=== PATIENT | male | born 1960 | race Caucasian/White ===

== ENCOUNTER 2018-01-13 07:09 | Emergency (ER) | payer BC ==
[2018-01-13 07:33] VITALS: BP 125/80
--- NOTE | 2018-01-13 07:36 | UC ---
Throat Pain/Nasal Juan HPI - HPI Summary HPI Summary: 57 year old male with sinus complaint. Has history of UC and sinus surgery with Dr Robbin CHAVEZ in [place]. Has sinus pressure for 5 days and eels it will snow ball in to infection. No fever. no tooth pain. Yellow mucus in AM and clears up - History of Current Complaint Stated Complaint: SINUS COMP Time Seen by Provider: 01/13/18 07:31 Hx Obtained From: Patient Onset/Duration: Gradual Onset Severity: Moderate Pain Intensity: 8 Cough: Productive Associated Signs & Symptoms: Positive: Sinus Discomfort, Nasal Discharge - Allergies/Home Medications Allergies/Adverse Reactions: Allergies Allergy/AdvReac Type Severity Reaction Status Date / Time MS Amoxicillin [Amoxicillin] Allergy Severe Hives Verified 01/13/18 07:17 MS Cephalexin [Cephalexin] Allergy Severe Hives Verified 01/13/18 07:17 MS Penicillins [Penicillins] Allergy Severe Hives Verified 01/13/18 07:17 MS Sulfa Drugs [Sulfa Drugs] Allergy Severe Hives Verified 01/13/18 07:17 MS Acetaminophen AdvReac Vomiting Verified 01/13/18 07:17 [From Oxycodone W/Acetaminophen] MS Oxycodone AdvReac Vomiting Verified 01/13/18 07:17 [From Oxycodone W/Acetaminophen] Home Medications: Home Medications Azelastine 0.15% NASAL(NF) [Astepro 0.15% NASAL (NF)] 2 spray BOTH NARES DAILY 01/13/18 [History Confirmed 01/13/18] Mesalamine CAP(NF) [Pentasa(NF)] 2 cap PO QID 01/13/18 [History Confirmed ] PMH/Surg Hx/FS Hx/Imm Hx Previously Healthy: Yes GI/ History: Other - colitis Other GI/ History: uc - Surgical History Surgical History: Yes Surgery Procedure, Year, and Place: kidney stone. polyps removed from sinus - Family History Known Family History: Positive: None - Social History Occupation: Employed Full-time Lives: With Family Alcohol Use: Rare Substance Use Type: None Smoking Status (MU): Never Smoked Tobacco Review of Systems Constitutional: Fatigue ENT: Nasal Discharge, Sinus Congestion, Sinus Pain/Tenderness Respiratory: Cough Is Patient Immunocompromised?: No All Other Systems Reviewed And Are Negative: Yes Physical Exam Triage Information Reviewed: Yes Appearance: Well-Appearing, No Pain Distress, Well-Nourished Vital Signs: Initial Vital Signs Temp 98.9 F 01/13/18 07:21 Pulse 86 01/13/18 07:21 Resp 16 01/13/18 07:21 BP 125/80 01/13/18 07:21 Pulse Ox 96 01/13/18 07:21 Vital Signs Reviewed: Yes Eye Exam: Normal ENT: Positive: Pharyngeal erythema, Nasal congestion, TM dull, Sinus tenderness - frontal and maxillary sinus Dental Exam: Normal Neck exam: Normal Respiratory Exam: Normal Musculoskeletal Exam: Normal Neurological Exam: Normal Psychological Exam: Normal Skin Exam: Normal Throat Pain/Nasal Course/Dx - Course Course Of Treatment: He is concerned about bacterial infection. I spent > 15 min counseling this is likely viral and to treat supportively and if sx worsen in the next few days then he may start the antibiotics. multiple allergy and per pt the z pack no effective. he is awaware of SE of meds doxy like worsening UC sx and he will try to not take abx unless sx persist or worsen - Differential Dx/Diagnosis Differential Diagnosis/HQI/PQRI: Otitis Media, Peritonsillar Abscess, URI Provider Diagnoses: Sinusitis Discharge - Sign-Out/Discharge Documenting (check all that apply): Patient Departure - Discharge Plan Condition: Good Disposition: HOME Prescriptions: Doxycycline Hyclate 100 mg PO BID 10 Days #20 tablet Patient Education Materials: Sinusitis (ED) Referrals: No Primary Care Phys,NOPCP [Primary Care Provider] - If Needed Additional Instructions: As we discussed you appear to have a viral sinusitis. It is advised to use allergy pill in the AM with flonase. Use astelion spray in the evening and if your symptoms worsen in the next 3-4 days then at that time you may start the antibiotics. - Billing Disposition and Condition Condition: GOOD Disposition: Home
== END 2018-01-13 08:00 | disposition home or self-care (01) ==
LOC: UCCORT 07:09
DX: J32.9 Chronic sinusitis, unspecified (principal); Z88.0 Allergy status to penicillin; Z88.2 Allergy status to sulfonamides; Z88.5 Allergy status to narcotic agent; Z88.1 Allergy status to other antibiotic agents
CPT/HCPCS: 99211; G0463

== ENCOUNTER 2018-10-28 07:03 | Emergency (ER) | payer BC ==
[2018-10-28 07:19] VITALS: BP 113/75
--- NOTE | 2018-10-28 07:40 | UC ---
Throat Pain/Nasal Juan HPI - HPI Summary HPI Summary: Sinus pain on the left with brown discharge for about 3 days. Sore throat as well. Some dental numbness. No fever or chills. no allergy symptoms currently. - History of Current Complaint Chief Complaint: UCGeneralIllness Stated Complaint: SINUS COMPLAINT Time Seen by Provider: 10/28/18 07:17 Hx Obtained From: Patient Onset/Duration: Gradual Onset, Lasting Days Severity: Moderate Pain Intensity: 0 Cough: Sputum Appears - brown. Associated Signs & Symptoms: Positive: Sinus Discomfort - Epiglottits Risk Factors Epiglottis Risk Factors: Negative - Allergies/Home Medications Allergies/Adverse Reactions: Allergies Allergy/AdvReac Type Severity Reaction Status Date / Time amoxicillin Allergy Hives Verified 10/28/18 07:21 cephalexin Allergy Hives Verified 10/28/18 07:21 oxycodone Allergy Vomiting Verified 10/28/18 07:21 Penicillins Allergy Hives Verified 10/28/18 07:21 Sulfa (Sulfonamide Allergy Hives Verified 10/28/18 07:21 Antibiotics) PMH/Surg Hx/FS Hx/Imm Hx Previously Healthy: No - sinusitis yearly. deviated septum. - Surgical History Surgical History: Yes Surgery Procedure, Year, and Place: kidney stone. polyps removed from sinus. left hip replacement - Family History Known Family History: Positive: None - Social History Alcohol Use: Rare Substance Use Type: None Smoking Status (MU): Never Smoked Tobacco Review of Systems All Other Systems Reviewed And Are Negative: Yes ENT: Positive: Sinus Congestion, Sinus Pain/Tenderness Physical Exam Triage Information Reviewed: Yes Appearance: Well-Appearing, No Pain Distress, Well-Nourished Vital Signs: Initial Vital Signs Temp 98.6 F 10/28/18 07:13 Pulse 75 10/28/18 07:13 Resp 18 10/28/18 07:13 BP 113/75 10/28/18 07:13 Pulse Ox 98 10/28/18 07:13 Vital Signs Reviewed: Yes Eye Exam: Normal Eyes: Positive: Conjunctiva Clear ENT: Positive: Pharynx normal, Nasal congestion, TMs normal, Sinus tenderness, Uvula midline. Negative: Pharyngeal erythema, TM bulging, TM dull, TM red, Tonsillar swelling, Tonsillar exudate, Trismus Neck: Positive: Supple, Nontender, No Lymphadenopathy Respiratory: Positive: Lungs clear, Normal breath sounds, No respiratory distress, No accessory muscle use. Negative: Respiratory distress, Decreased breath sounds, Accessory muscle use, Crackles, Rhonchi, Stridor, Wheezing Cardiovascular: Positive: No Murmur, Pulses Normal, Brisk Capillary Refill Abdomen Description: Positive: No Organomegaly, Soft. Negative: Distended, Guarding Musculoskeletal: Positive: Strength Intact, ROM Intact, No Edema Neurological: Positive: Alert, Muscle Tone Normal. Negative: Fatigued Psychological: Positive: Age Appropriate Behavior Skin: Negative: Rashes Throat Pain/Nasal Course/Dx - Course Course Of Treatment: Left sinusitis. Recurrent yearly. Last year recieved doxycycline. - Differential Dx/Diagnosis Provider Diagnosis: Sinusitis Discharge - Sign-Out/Discharge Documenting (check all that apply): Patient Departure All imaging exams completed and their final reports reviewed: No Studies - Discharge Plan Condition: Good Disposition: HOME Prescriptions: DOXYcycline CAP(*) [DOXYcycline 100MG CAP(*)] 100 mg PO BID #20 cap Patient Education Materials: Sinusitis (ED) Referrals: No Primary Care Phys,NOPCP [Primary Care Provider] - - Billing Disposition and Condition Condition: GOOD Disposition: Home
== END 2018-10-28 07:42 | disposition home or self-care (01) ==
LOC: UCCORT 07:03
DX: J32.9 Chronic sinusitis, unspecified (principal); Z88.0 Allergy status to penicillin; Z88.1 Allergy status to other antibiotic agents; Z88.5 Allergy status to narcotic agent; Z88.2 Allergy status to sulfonamides
CPT/HCPCS: 99212; G0463

== ENCOUNTER 2019-04-07 07:56 | Emergency (ER) | payer BC ==
[2019-04-07 08:10] VITALS: BP 124/76
--- NOTE | 2019-04-07 08:28 | UC ---
Skin Complaint HPI - HPI Summary HPI Summary: Stung 4 times Monday. On right hand, right knee, left gil and back. Has localized swelling, discomfort and redness. - History of Current Complaint Chief Complaint: UCSkin Time Seen by Provider: 04/07/19 08:06 Stated Complaint: BEE STING Hx Obtained From: Patient Onset/Duration: Sudden Onset, Lasting Days Skin Exposure Onset/Duration: Days Ago Timing: Constant Onset Severity: Mild Current Severity: Mild Pain Intensity: 4 Location: Discrete Character: Swelling, Redness, Painful Aggravating Factor(s): Touch Alleviating Factor(s): Antihistamines Related History: Insect Bite/Sting - Allergy/Home Medications Allergies/Adverse Reactions: Allergies Allergy/AdvReac Type Severity Reaction Status Date / Time amoxicillin Allergy Hives Verified 04/07/19 08:05 cephalexin Allergy Hives Verified 04/07/19 08:05 oxycodone Allergy Vomiting Verified 04/07/19 08:05 Penicillins Allergy Hives Verified 04/07/19 08:05 Sulfa (Sulfonamide Allergy Hives Verified 04/07/19 08:05 Antibiotics) Home Medications: Home Medications EPINEPHrine [Epipen] 0.3 mg IM ONCE PRN 04/07/19 [History Confirmed 04/07/19] diPHENhydraMINE PO* [Benadryl PO 25 MG TAB*] 25 mg PO Q6H PRN 04/07/19 [History Confirmed 04/07/19] PMH/Surg Hx/FS Hx/Imm Hx Previously Healthy: Yes - Surgical History Surgical History: Yes Surgery Procedure, Year, and Place: kidney stone. polyps removed from sinus. left hip replacement - Family History Known Family History: Positive: None - Social History Alcohol Use: Occasionally Substance Use Type: None Smoking Status (MU): Never Smoked Tobacco Review of Systems All Other Systems Reviewed And Are Negative: Yes Skin: Positive: Other - 4 areas of edema and erythema Is Patient Immunocompromised?: No Physical Exam Triage Information Reviewed: Yes Appearance: Well-Appearing, Well-Nourished, Pain Distress Vital Signs: Initial Vital Signs Temp 97.4 F 04/07/19 08:06 Pulse 67 04/07/19 08:06 Resp 15 04/07/19 08:06 BP 124/76 04/07/19 08:06 Pulse Ox 100 04/07/19 08:06 Vital Signs Reviewed: Yes Eye Exam: Normal ENT Exam: Normal Dental Exam: Normal Neck exam: Normal Respiratory Exam: Normal Cardiovascular Exam: Normal Abdominal Exam: Normal Bowel Sounds: Positive: Present Musculoskeletal Exam: Normal Neurological Exam: Normal Psychological Exam: Normal Skin: Positive: Other - right hand, knee, lower back and side discreet areas of swelling and erythema from a bee sting Course/Dx - Course Course Of Treatment: hx obtained, exam performed ,meds reviewed, given steroids and epi pen as he explained that his reactions are getting worse, did have a scratchy throat and lightheadedness when first stung. that has subsided - Differential Diagnoses - Skin Complaint Differential Diagnoses: Cellulitis, Urticaria - Diagnoses Provider Diagnosis: Allergic reaction to bee sting Discharge ED - Sign-Out/Discharge Documenting (check all that apply): Patient Departure All imaging exams completed and their final reports reviewed: No Studies - Discharge Plan Condition: Stable Disposition: HOME Prescriptions: EPINEPHrine [Epipen 2-Sheng] 0.3 mg IM ONCE PRN #1 inj PRN Reason: Per Protocol predniSONE [Prednisone 20 MG TAB] 20 mg PO DAILY #18 tablet Patient Education Materials: General Allergic Reaction (ED) Referrals: No Primary Care Phys,NOPCP [Primary Care Provider] - Additional Instructions: 1. take the prednisone as needed. 2. Use the epi pen as needed and report to Er for follow up if used. 3. Soak hand in warm water for the swelling - Billing Disposition and Condition Condition: STABLE Disposition: Home - Attestation Statements Provider Attestation: I was available for consult. This patient was seen by the JAYDA. The patient was not presented to , seen by or examined by ca -Rosa Marroquin MD
== END 2019-04-07 08:29 | disposition home or self-care (01) ==
LOC: UCCORT 07:56
DX: T63.441A Toxic effect of venom of bees, accidental (unintentional), initial encounter (principal); Z88.0 Allergy status to penicillin; Z88.1 Allergy status to other antibiotic agents; Z88.2 Allergy status to sulfonamides; Z88.5 Allergy status to narcotic agent; Z96.642 Presence of left artificial hip joint; Y92.9 Unspecified place or not applicable
CPT/HCPCS: 99212; G0463

== ENCOUNTER 2019-04-20 07:47 | Emergency (ER) | payer BC ==
[2019-04-20 08:00] VITALS: BP 131/75
--- NOTE | 2019-04-20 08:12 | UC ---
Throat Pain/Nasal Juan HPI - HPI Summary HPI Summary: Pt presents with c/o gradual onset of nasal congestion, pressure, pain and states that he "has a sinus infection". Pt reports that he has frequkent sinus infections and was seen here the last time he had one. (10/19). - History of Current Complaint Chief Complaint: UCGeneralIllness Stated Complaint: SINUS COMPLAINT Time Seen by Provider: 04/20/19 08:06 Hx Obtained From: Patient Onset/Duration: Gradual Onset, Lasting Days, Still Present, Worse Since - onset Severity: Moderate Pain Intensity: 5 Cough: None Associated Signs & Symptoms: Positive: Sinus Discomfort - Epiglottits Risk Factors Epiglottis Risk Factors: Negative - Allergies/Home Medications Allergies/Adverse Reactions: Allergies Allergy/AdvReac Type Severity Reaction Status Date / Time amoxicillin Allergy Hives Verified 04/20/19 07:56 cephalexin Allergy Hives Verified 04/20/19 07:56 oxycodone Allergy Vomiting Verified 04/20/19 07:56 Penicillins Allergy Hives Verified 04/20/19 07:56 Sulfa (Sulfonamide Allergy Hives Verified 04/20/19 07:56 Antibiotics) Home Medications: Home Medications Phenylephrine/Dm/Acetaminop/GG [Cold-Flu Severe Caplet] 1 tab PO ONCE 04/20/19 [ History Confirmed 04/20/19] PMH/Surg Hx/FS Hx/Imm Hx Previously Healthy: Yes - Surgical History Surgical History: Yes Surgery Procedure, Year, and Place: kidney stone. polyps removed from sinus. left hip replacement. deviated septum repair - Family History Known Family History: Positive: Cardiac Disease - Social History Occupation: Employed Full-time Lives: With Family Alcohol Use: Occasionally Substance Use Type: None Smoking Status (MU): Never Smoked Tobacco Have You Smoked in the Last Year: No Review of Systems All Other Systems Reviewed And Are Negative: Yes Constitutional: Positive: Fatigue Skin: Positive: Negative Eyes: Positive: Negative ENT: Positive: Sinus Congestion, Sinus Pain/Tenderness Respiratory: Positive: Negative Cardiovascular: Positive: Negative Gastrointestinal: Positive: Negative Genitourinary: Positive: Negative Motor: Positive: Negative Neurovascular: Positive: Negative Musculoskeletal: Positive: Negative Neurological: Positive: Headache Psychological: Positive: Negative Is Patient Immunocompromised?: No Physical Exam Triage Information Reviewed: Yes Appearance: Ill-Appearing Vital Signs: Initial Vital Signs Temp 98.8 F 04/20/19 07:57 Pulse 83 04/20/19 07:57 Resp 16 04/20/19 07:57 BP 131/75 04/20/19 07:57 Pulse Ox 100 04/20/19 07:57 Vital Signs Reviewed: Yes Eye Exam: Normal ENT: Positive: Nasal congestion, Sinus tenderness Dental Exam: Normal Neck exam: Normal Respiratory Exam: Normal Cardiovascular Exam: Normal Musculoskeletal Exam: Normal Neurological Exam: Normal Psychological Exam: Normal Skin Exam: Normal Throat Pain/Nasal Course/Dx - Course Course Of Treatment: I discussed with the pt the need to follow up with a PCP and an ENT specialist for his c/o frequent sinus infections. - Differential Dx/Diagnosis Differential Diagnosis/HQI/PQRI: Sinusitis, URI Provider Diagnosis: Sinusitis Discharge ED - Sign-Out/Discharge Documenting (check all that apply): Patient Departure All imaging exams completed and their final reports reviewed: No Studies - Discharge Plan Condition: Stable Disposition: HOME Prescriptions: DOXYcycline CAP(*) [DOXYcycline 100MG CAP(*)] 100 mg PO Q12H #20 cap Patient Education Materials: Sinusitis (ED) Referrals: [facility] [Outside] Brice Daniels MD [Medical Doctor] - No Primary Care Phys,NOPCP [Primary Care Provider] - Additional Instructions: Please follow up with your PCP. We have also provided you a recommendation to an ENT for follow up with your frequent sinus infections. - Billing Disposition and Condition Condition: STABLE Disposition: Home
== END 2019-04-20 08:28 | disposition home or self-care (01) ==
LOC: UCCORT 07:47
DX: J32.9 Chronic sinusitis, unspecified (principal); Z88.0 Allergy status to penicillin; Z88.1 Allergy status to other antibiotic agents; Z88.2 Allergy status to sulfonamides; Z88.5 Allergy status to narcotic agent; Z88.8 Allergy status to other drugs, medicaments and biological substances; Z96.652 Presence of left artificial knee joint; Z98.890 Other specified postprocedural states
CPT/HCPCS: 99212; G0463